=== PATIENT | female | born 1995 | race Caucasian/White ===

== ENCOUNTER 2017-05-04 10:05 | Emergency (ER) | payer BC ==
[2017-05-04] MEDS ORDERED: Sodium Chloride 0.9% 10 ML Syringe FLUSH PRN (10:16)
[2017-05-04 10:23] VITALS: BP 148/86
--- NOTE | 2017-05-04 11:04 | CT ---
Head CT Technique: Multiple axial sections through the brain were obtained. Intravenous contrast was not utilized. Comparison: No previous intracranial imaging. Findings: Ventricles along with basal cisterns and sulci over the convexities are within normal limits for the patient's age. No abnormal parenchymal densities are seen. No evidence of intracranial hemorrhage. No midline shift or mass effect is seen. Bone window settings were reviewed which shows no acute calvarial abnormality. Visualized sinuses are clear. Impression: 1. Nothing acute is appreciated on noncontrast head CT study. Diagnostic code #1
--- NOTE | 2017-05-04 11:22 | EDM.PDOC ---
ED HPI GENERAL MEDICAL PROBLEM - General Chief Complaint: Neuro Symptoms/Deficits Stated Complaint: HANDS TINGLY AND MOUTH NUMB Time Seen by Provider: 05/04/17 10:16 Source of Information: Reports: Patient History Limitations: Reports: No Limitations - History of Present Illness INITIAL COMMENTS - FREE TEXT/NARRATIVE: The patient presents with tingling to her lips and both hands and also felt like she was floating in her body. This started at 0930 this morning at work in her break room. She is a paraprofessional at school. She has no fever, chills, cough, chest pain, shortness of breath, abdominal pain, nausea, vomiting , numbness or weakness. She has never had this happen before. She has no medical problems. She has no recent stress. A stroke alert was called and the last time know well was 0930. Onset: Sudden Duration: Minutes: Severity: Moderate Improves with: Reports: None Worsens with: Reports: None Associated Symptoms: Reports: No Other Symptoms - Related Data Allergies Allergy/AdvReac Type Severity Reaction Status Date / Time No Known Allergies Allergy Verified 05/04/17 10:25 Home Meds: Home Meds Potassium Chloride 10 meq PO DAILY #30 cap.er 05/04/17 [Rx] Past Medical History - Past Health History Medical/Surgical History: Denies Medical/Surgical History Social & Family History - Family History Family Medical History: Noncontributory - Tobacco Use Smoking Status *Q: Never Smoker Second Hand Smoke Exposure: No - Caffeine Use Caffeine Use: Reports: Coffee - Recreational Drug Use Recreational Drug Use: No - Living Situation & Occupation Living situation: Reports: Single Occupation: Employed ED ROS GENERAL - Review of Systems Review Of Systems: See Below Constitutional: Reports: No Symptoms HEENT: Reports: No Symptoms Respiratory: Reports: No Symptoms Cardiovascular: Reports: No Symptoms Endocrine: Reports: No Symptoms GI/Abdominal: Reports: No Symptoms : Reports: No Symptoms Musculoskeletal: Reports: No Symptoms Neurological: Reports: Tingling (Face and hands) ED EXAM, NEURO - Physical Exam Exam: See Below Exam Limited By: No Limitations General Appearance: Alert, No Apparent Distress Ears: Normal External Exam Nose: Normal Inspection Head Exam: Atraumatic, Normocephalic Neck: Normal Inspection Respiratory/Chest: No Respiratory Distress, Lungs Clear, Normal Breath Sounds Cardiovascular: Regular Rate, Rhythm, No Edema, No Murmur GI/Abdominal: Soft, Non-Tender, No Organomegaly, No Mass Neurological: Alert, No Motor/Sensory Deficits, Oriented x 3, Other (Tingling to her lips and fingers but no numbness) EKG INTERPRETATION EKG Date: 05/04/17 Time: 10:25 Rhythm: Other (Sinus tachycardia) Rate (Beats/Min): 112 [place]: Normal P-Wave: Present QRS: Normal ST-T: Normal QT: Normal Course - Vital Signs Last Recorded V/S: Last Vital Signs Temp 97.9 F 05/04/17 10:16 Pulse 96 05/04/17 10:16 Resp 18 05/04/17 10:16 BP 148/86 H 05/04/17 10:16 Pulse Ox 100 05/04/17 10:16 - Orders/Labs/Meds Orders: Active Orders 24 hr Category Date Time Status Cardiac Monitoring [RC] . DIRECTED Care 05/04/17 10:17 Active EKG Documentation Completion [RC] STAT Care 05/04/17 10:17 Active Peripheral IV Care [RC] . DIRECTED Care 05/04/17 10:17 Active Sodium Chloride 0.9% [Saline Flush] Med 05/04/17 10:16 Active 10 ml FLUSH ASDIRECTED PRN Peripheral IV Insertion Adult [OM.PC] Stat Oth 05/04/17 10:16 Ordered Medication Orders Sodium Chloride (Saline Flush) 10 ml FLUSH ASDIRECTED PRN PRN Reason: Keep Vein Open Last Admin: 05/04/17 10:33 Dose: 10 ml Labs: Laboratory Tests 05/04/17 05/04/17 05/04/17 Range/Units 10:14 10:20 10:20 WBC 9.55 (3.98-10.04) K/mm3 RBC 4.80 (3.98-5.22) M/mm3 Hgb 13.9 (11.2-15.7) gm/L Hct 42.0 (34.1-44.9) % MCV 87.5 (79.4-94.8) fl MCH 29.0 (25.6-32.2) pg MCHC 33.1 (32.2-35.5) g/dl RDW Std Deviation 45.1 (36.4-46.3) fL Plt Count 276 (182-369) K/mm3 MPV 10.9 (9.4-12.3) fl Neut % (Auto) 65.1 (34.0-71.1) % Lymph % (Auto) 26.7 (19.3-51.7) % [place] % (Auto) 7.4 (4.7-12.5) % Eos % (Auto) 0.5 L (0.7-5.8) Baso % (Auto) 0.2 (0.1-1.2) % Neut # (Auto) 6.21 H (1.56-6.13) K/mm3 Lymph # (Auto) 2.55 (1.18-3.74) K/mm3 [place] # (Auto) 0.71 H (0.24-0.36) K/mm3 Eos # (Auto) 0.05 (0.04-0.36) K/mm3 Baso # (Auto) 0.02 (0.01-0.08) K/mm3 Sodium 140 (136-145) mEq/L Potassium 3.2 L (3.5-5.1) mEq/L Chloride 102 (98-107) mEq/L Carbon Dioxide 22 (21-32) mEq/L Anion Gap 19.2 H (5-15) BUN 9 (7-18) mg/dL Creatinine 0.8 (0.55-1.02) mg/dL Est Cr Clr Drug Dosing 97.57 mL/min Estimated GFR (MDRD) > 60 (>60) mL/min BUN/Creatinine Ratio 11.3 L (14-18) Glucose 120 H (74-106) mg/dL POC Glucose 96 (70-105) mg/dL Calcium 9.3 (8.5-10.1) mg/dL Magnesium 1.8 (1.8-2.4) mg/dl Total Bilirubin 0.4 (0.2-1.0) mg/dL AST 18 (15-37) U/L ALT 26 (14-59) U/L Alkaline Phosphatase 59 (46-116) U/L Troponin I < 0.017 (0.00-0.056) ng/mL Total Protein 7.9 (6.4-8.2) g/dl Albumin 4.0 (3.4-5.0) g/dl Globulin 3.9 gm/dL Albumin/Globulin Ratio 1.0 (1-2) Urine HCG, Qual (NEGATIVE) 02/26/18 Range/Units 10:20 WBC (3.98-10.04) K/mm3 RBC (3.98-5.22) M/mm3 Hgb (11.2-15.7) gm/L Hct (34.1-44.9) % MCV (79.4-94.8) fl MCH (25.6-32.2) pg MCHC (32.2-35.5) g/dl RDW Std Deviation (36.4-46.3) fL Plt Count (182-369) K/mm3 MPV (9.4-12.3) fl Neut % (Auto) (34.0-71.1) % Lymph % (Auto) (19.3-51.7) % [place] % (Auto) (4.7-12.5) % Eos % (Auto) (0.7-5.8) Baso % (Auto) (0.1-1.2) % Neut # (Auto) (1.56-6.13) K/mm3 Lymph # (Auto) (1.18-3.74) K/mm3 [place] # (Auto) (0.24-0.36) K/mm3 Eos # (Auto) (0.04-0.36) K/mm3 Baso # (Auto) (0.01-0.08) K/mm3 Sodium (136-145) mEq/L Potassium (3.5-5.1) mEq/L Chloride (98-107) mEq/L Carbon Dioxide (21-32) mEq/L Anion Gap (5-15) BUN (7-18) mg/dL Creatinine (0.55-1.02) mg/dL Est Cr Clr Drug Dosing mL/min Estimated GFR (MDRD) (>60) mL/min BUN/Creatinine Ratio (14-18) Glucose (74-106) mg/dL POC Glucose (70-105) mg/dL Calcium (8.5-10.1) mg/dL Magnesium (1.8-2.4) mg/dl Total Bilirubin (0.2-1.0) mg/dL AST (15-37) U/L ALT (14-59) U/L Alkaline Phosphatase (46-116) U/L Troponin I (0.00-0.056) ng/mL Total Protein (6.4-8.2) g/dl Albumin (3.4-5.0) g/dl Globulin gm/dL Albumin/Globulin Ratio (1-2) Urine HCG, Qual Negative (NEGATIVE) Meds: Medications Generic Name Dose Route Start Last Admin Trade Name Boni PRN Reason Stop Dose Admin Sodium Chloride 10 ml 05/04/17 10:16 05/04/17 10:33 Saline Flush FLUSH 10 ml ASDIRECTED PRN Administration Keep Vein Open - Re-Assessments/Exams Free Text/Narrative Re-Assessment/Exam: 05/04/17 11:24 A stroke alert was called. Her last time known well was 0930 this morning. Her EKG shows a sinus tachycardia with no acute changes. Her head CT looks good. Her CBC looks good. Her K was a little low at 3.2. Her glucose was elevated at 120. Her troponin was negative. Her HCG is negative. She feels better. This sounds like an anxiety attack but she says she is not stressed and she has no recent stress. I will treat her low potassium and have her follow up with Rosemarie Marcano. 05/04/17 11:29 Departure - Departure Time of Disposition: 11:30 Disposition: Home, Self-Care 01 Condition: Good Clinical Impression: Hypokalemia, Tingling sensation - Discharge Information Prescriptions: Potassium Chloride 10 meq PO DAILY #30 cap.er Referrals: PCP,None [Primary Care Provider] - Thelma Harmon MD [Physician] - 1 Week Forms: ED Department Discharge, ED Return to Work/School Form Additional Instructions: Take the potassium daily. Have your potassium checked in 1 to 2 weeks[address] Follow up with Dr Harmon. Please return if you are worse. - My Orders Last 24 Hours: My Active Orders 05/04/17 10:16 Sodium Chloride 0.9% [Saline Flush] 10 ml FLUSH ASDIRECTED PRN Peripheral IV Insertion Adult [OM.PC] Stat 05/04/17 10:17 Cardiac Monitoring [RC] . DIRECTED EKG Documentation Completion [RC] STAT Peripheral IV Care [RC] . DIRECTED - Assessment/Plan Last 24 Hours: My Active Orders 05/04/17 10:16 Sodium Chloride 0.9% [Saline Flush] 10 ml FLUSH ASDIRECTED PRN Peripheral IV Insertion Adult [OM.PC] Stat 05/04/17 10:17 Cardiac Monitoring [RC] . DIRECTED EKG Documentation Completion [RC] STAT Peripheral IV Care [RC] . DIRECTED
== END 2017-05-04 11:50 | disposition home or self-care (01) ==
LOC: JD.ED 10:05
DX: E87.6 Hypokalemia (principal); R20.2 Paresthesia of skin; Z79.899 Other long term (current) drug therapy
CPT/HCPCS: 36415; 70450; 80053; 81025; 82962; 83735; 84484; 85025; 93005; 99285; J7050; 93010; 99284-25

== ENCOUNTER 2018-06-15 09:36 | Emergency (ER) | payer BC ==
[2018-06-15 09:49] VITALS: BP 133/92
--- NOTE | 2018-06-15 11:14 | EDM.PDOC ---
ED HPI GENERAL MEDICAL PROBLEM - General Chief Complaint: Syncope Stated Complaint: DIZZY/WEAKNESS Time Seen by Provider: 06/15/18 10:54 Source of Information: Reports: Patient, RN Notes Reviewed History Limitations: Reports: No Limitations - History of Present Illness INITIAL COMMENTS - FREE TEXT/NARRATIVE: Patient is a 23-year-old female who presents to the ED for the evaluation of feeling faint as to where she was going to pass out. 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 when she had some feelings of becoming faint. She notes that she felt as if she was going to pass out so she got low to the ground. She noted some tingling sensations to her upper arms at this time. She also states that it sounds as if noises sound faraway with these spells. She has had similar episodes of this last year, she states that she was seen in the ER and was found to have low potassium at that time. She does take her potassium supplements. She notes that these are happening more frequently, and now she states that she can have maybe 2 or 3 per week. She states that normally these spells last for 15 minutes, however the spell today lasted around 45 minutes. She states she did eat a good breakfast this morning. She does not notice any specific timing of these spells. She is not aware of any diabetic diagnosis for herself, but notes a history of diabetes in her family with her grandmother and her dad being affected. She denies any nausea/vomiting, palpitations, chest pain. She notes some mild shortness of breath with these symptoms as well. She also notes that she does not have any increased stress in her life, but has had some issues with anxiety in the past. - Related Data Allergies Allergy/AdvReac Type Severity Reaction Status Date / Time No Known Allergies Allergy Verified 06/15/18 09:42 Home Meds: Home Meds Potassium Chloride 10 meq PO ASDIRECTED 06/15/18 [History] Past Medical History - Past Health History Medical/Surgical History: Denies Medical/Surgical History Cardiovascular History: Reports: Other (See Below) Other Cardiovascular History: near syncopal episodes over past year. Dx'd with low K+ last year. Gastrointestinal History: Reports: Gastritis Neurological History: Reports: Other (See Below) Other Neuro History: near syncopal episodes over past year. - Infectious Disease History Infectious Disease History: Reports: Chicken Pox Social & Family History - Family History Family Medical History: Noncontributory - Tobacco Use Smoking Status *Q: Never Smoker Second Hand Smoke Exposure: No - Caffeine Use Caffeine Use: Reports: Coffee, Soda - Recreational Drug Use Recreational Drug Use: No - Living Situation & Occupation Living situation: Reports: Single Occupation: Employed ED ROS GENERAL - Review of Systems Review Of Systems: See Below Constitutional: Denies: Fever, Chills, Weakness HEENT: Denies: Ear Pain, Vertigo Respiratory: Reports: Shortness of Breath Cardiovascular: Reports: Lightheadedness. Denies: Chest Pain, Blood Pressure Problem, Palpitations, Syncope Endocrine: Reports: No Symptoms GI/Abdominal: Reports: No Symptoms : Reports: No Symptoms Musculoskeletal: Reports: No Symptoms Skin: Reports: No Symptoms Neurological: Reports: Dizziness. Denies: Confusion, Syncope Psychiatric: Reports: Anxiety Hematologic/Lymphatic: Reports: No Symptoms Immunologic: Reports: No Symptoms ED EXAM, DIZZINESS - Physical Exam Exam: See Below Exam Limited By: No Limitations General Appearance: Alert, WD/WN, No Apparent Distress Eye Exam: Bilateral Eye: EOMI Ears: Normal External Exam, Normal Canal, Hearing Grossly Normal, Normal TMs Nose: Normal Inspection, Normal Mucosa Throat/Mouth: Normal Inspection, Normal Lips, Normal Teeth, Normal Gums, Normal Oropharynx, Normal Voice, No Airway Compromise Head Exam: Atraumatic Neck: Normal Inspection, Supple, Non-Tender, Full Range of Motion Respiratory/Chest: No Respiratory Distress, Lungs Clear, Normal Breath Sounds, No Accessory Muscle Use, Chest Non-Tender Cardiovascular: Normal Peripheral Pulses, Regular Rate, Rhythm, No Murmur GI/Abdominal: Normal Bowel Sounds, Soft, Non-Tender, No Distention, No Mass Neurological: Alert, Normal Mood/Affect, Normal Dorsiflexion, Normal Plantar Flexion, Normal Gait, Normal Reflexes, No Motor/Sensory Deficits, Oriented x 3 Extremities: Normal Inspection, Normal Capillary Refill Psychiatric: Normal Affect, Normal Mood Skin Exam: Warm, Dry, Intact, Normal Color, No Rash Course - Vital Signs Last Recorded V/S: Last Vital Signs Temp 98.6 F 06/15/18 09:40 Pulse 103 H 06/15/18 09:40 Resp 18 06/15/18 09:40 BP 133/92 H 06/15/18 09:40 Pulse Ox 100 06/15/18 09:40 Orthostatic Blood Pressure [ 150/93 Standing] Orthostatic Blood Pressure [ 142/99 Sitting] Orthostatic Blood Pressure [ 133/92 Supine] - Orders/Labs/Meds Orders: Active Orders 24 hr Category Date Time Status Holter Monitor 48 Hours [RC] .PRN Care 06/15/18 12:47 Ordered UA W/MICROSCOPIC [URIN] Stat Lab 06/15/18 12:05 Ordered Labs: Laboratory Tests 06/15/18 06/15/18 Range/Units 11:23 11:23 WBC 8.03 (3.98-10.04) K/mm3 RBC 4.54 (3.98-5.22) M/mm3 Hgb 13.5 (11.2-15.7) gm/L Hct 39.7 (34.1-44.9) % MCV 87.4 (79.4-94.8) fl MCH 29.7 (25.6-32.2) pg MCHC 34.0 (32.2-35.5) g/dl RDW Std Deviation 44.2 (36.4-46.3) fL Plt Count 257 (182-369) K/mm3 MPV 10.9 (9.4-12.3) fl Neutrophils % (Manual) 75 H (40-60) % Band Neutrophils % 0 (0-10) % Lymphocytes % (Manual) 18 L (20-40) % Atypical Lymphs % 0 % Monocytes % (Manual) 6 (2-10) % Eosinophils % (Manual) 1 (0.7-5.8) % Basophils % (Manual) 0 L (0.1-1.2) Platelet Estimate Adequate RBC Morph Comment Normal Sodium 141 (136-145) mEq/L Potassium 4.4 (3.5-5.1) mEq/L Chloride 105 (98-107) mEq/L Carbon Dioxide 25 (21-32) mEq/L Anion Gap 15.4 H (5-15) BUN 12 (7-18) mg/dL Creatinine 0.7 (0.55-1.02) mg/dL Est Cr Clr Drug Dosing 106.09 mL/min Estimated GFR (MDRD) > 60 (>60) mL/min BUN/Creatinine Ratio 17.1 (14-18) Glucose 98 (74-106) mg/dL Calcium 9.9 (8.5-10.1) mg/dL Total Bilirubin 0.4 (0.2-1.0) mg/dL AST 12 L (15-37) U/L ALT 17 (14-59) U/L Alkaline Phosphatase 45 L (46-116) U/L Total Protein 7.4 (6.4-8.2) g/dl Albumin 3.8 (3.4-5.0) g/dl Globulin 3.6 gm/dL Albumin/Globulin Ratio 1.1 (1-2) - Re-Assessments/Exams Free Text/Narrative Re-Assessment/Exam: 06/15/18 12:00 Patient presents to the ED for the evaluation of dizziness and feeling faint. Her exam was benign at this point in time. Her symptoms are somewhat concerning for possible dehydration. She does not note any specific timing of these symptoms, she was worried about his history diabetes in her family I did mention to the patient that she should check her blood sugars at times of feeling faint. The patient is amenable to this plan. I did order a CBC, CMP, UA for further lab evaluation. Her labs did return at this time and her CBC and CMP are within normal limits. There is no overt reason as to why she is feeling dizzy/faint at this time. We will however give the patient the opportunity to take home a Holter monitor for 48 hours to see if we cannot catch a episode to rule out further etiology. 06/15/18 12:49 CBC and CMP are unremarkable for any abnormalities at this time, UA is still pending but I do not expect there to be any issues with this either as her other labs came back fine. I have ordered 48 hour Holter monitor and will tell the patient to follow up with Safia Eden in our family practice clinic. Departure - Departure Time of Disposition: 12:50 Disposition: Home, Self-Care 01 Condition: Fair Clinical Impression: Dizziness - Discharge Information *PRESCRIPTION DRUG MONITORING PROGRAM REVIEWED*: No *COPY OF PRESCRIPTION DRUG MONITORING REPORT IN PATIENT ARMANDO: No Instructions: Near-Syncope, [id number] Referrals: PCP,Unknown [Primary Care Provider] - Forms: ED Department Discharge Additional Instructions: You have been evaluated in the ED today for your dizziness/feeling faint spells. Your labs were unremarkable for any concerning etiology of why you should be feeling dizzy or faint. A 48 hour Holter monitor has been ordered please wear this for the next 48 hours and follow up with Safia Eden, in our family practice clinic please call [phone] for an appointment with her about 1 week after you finish up with the Holter monitor. She can then determine if you need further workup for your dizziness or fainting issues. Please also maybe check your blood sugars at times of feeling faint to provide us more insight as to what might be going on. Please return to the ED if her symptoms change or worsen. - My Orders Last 24 Hours: My Active Orders 06/15/18 12:05 UA W/MICROSCOPIC [URIN] Stat 06/15/18 12:47 Holter Monitor 48 Hours [RC] .PRN - Assessment/Plan Last 24 Hours: My Active Orders 06/15/18 12:05 UA W/MICROSCOPIC [URIN] Stat 06/15/18 12:47 Holter Monitor 48 Hours [RC] .PRN
== END 2018-06-15 13:15 | disposition home or self-care (01) ==
LOC: JD.ED 09:36
DX: R42 Dizziness and giddiness (principal)
CPT/HCPCS: 36415; 80053; 81001; 85007; 85027; 93225; 93226; 99283; 99284-25

== ENCOUNTER 2019-06-01 05:26 | Inpatient (IN) | payer BC ==
[~2019-06-01 05:26] MED LIST: Citric Acid/Sodium Citrate Solution 30 ML Cup PO ONE; Metoclopramide 10 MG/2 ML SDV IVPUSH ONE; Sodium Chloride 0.9% 10 ML Syringe FLUSH PRN
[2019-06-01] MEDS ORDERED: Oxytocin/Lactated Ringers 10 UNIT/1,000 ML BAG IV SCH (05:30)
[2019-06-01] MEDS ORDERED: Lactated Ringers 1,000 ML ONE ×2 (05:52→08:12)
[2019-06-01] MEDS: Lactated Ringers 1,000 ML IV SCH ×3 (06:19→08:55)
[2019-06-01] MEDS ORDERED: ceFAZolin 2 GM in Premix Bag 1 BAG IV ONE (07:00)
--- NOTE | 2019-06-01 07:13 | PCM.PREANE ---
Preanesthetic Assessment - Anesthesia/Transfusion/Family Hx Anesthesia History: No Prior Anesthesia Transfusion History: No Prior Transfusion(s) - Review of Systems General: No Symptoms Pulmonary: No Symptoms Cardiovascular: No Symptoms Gastrointestinal: No Symptoms Neurological: No Symptoms Other: Reports: None - Physical Assessment NPO Status Date: 06/01/19 NPO Status Time: 06:00 Vital Signs: Last Vital Signs Temp 98.1 F 06/01/19 05:43 Pulse 102 H 06/01/19 05:43 Resp 16 06/01/19 05:43 BP 117/75 06/01/19 05:43 Pulse Ox 94 L 06/01/19 05:43 Height: 1.65 m Weight: 85.774 kg ASA Class: 2 Mental Status: Alert & Oriented x3 Airway Class: Mallampati = 2 Dentition: Reports: Normal Dentition Thyro-Mental Finger Breadths: 3 Mouth Opening Finger Breadths: 3 ROM/Head Extension: Full Lungs: Clear to Auscultation, Normal Respiratory Effort Cardiovascular: Regular Rate, Regular Rhythm - Lab Values: Laboratory Last Values WBC 11.67 K/mm3 (3.98-10.04) H 06/01/19 06:24 RBC 4.15 M/mm3 (3.98-5.22) 06/01/19 06:24 Hgb 11.9 gm/dl (11.2-15.7) D 06/01/19 06:24 Hct 36.2 % (34.1-44.9) 06/01/19 06:24 MCV 87.2 fl (79.4-94.8) 06/01/19 06:24 MCH 28.7 pg (25.6-32.2) 06/01/19 06:24 MCHC 32.9 g/dl (32.2-35.5) 06/01/19 06:24 RDW Std Deviation 46.7 fL (36.4-46.3) H 06/01/19 06:24 Plt Count 244 K/mm3 (182-369) 06/01/19 06:24 MPV 11.8 fl (9.4-12.3) 06/01/19 06:24 Neut % (Auto) 78.3 % (34.0-71.1) H 06/01/19 06:24 Lymph % (Auto) 16.0 % (19.3-51.7) L 06/01/19 06:24 [place] % (Auto) 5.1 % (4.7-12.5) 06/01/19 06:24 Eos % (Auto) 0.3 (0.7-5.8) L 06/01/19 06:24 Baso % (Auto) 0.1 % (0.1-1.2) 06/01/19 06:24 Neut # (Auto) 9.14 K/mm3 (1.56-6.13) H 06/01/19 06:24 Lymph # (Auto) 1.87 K/mm3 (1.18-3.74) 06/01/19 06:24 [place] # (Auto) 0.59 K/mm3 (0.24-0.36) H 06/01/19 06:24 Eos # (Auto) 0.04 K/mm3 (0.04-0.36) 06/01/19 06:24 Baso # (Auto) 0.01 K/mm3 (0.01-0.08) 06/01/19 06:24 - Allergies Allergies/Adverse Reactions: Allergies Allergy/AdvReac Type Severity Reaction Status Date / Time No Known Allergies Allergy Verified 05/30/19 14:42 - Blood Blood Available: Yes Product(s) Available: PRBC - Acknowledgements Anesthesia Type Planned: Spinal Pt an Appropriate Candidate for the Planned Anesthesia: Yes Alternatives and Risks of Anesthesia Discussed w Pt/Guardian: Yes Pt/Guardian Understands and Agrees with Anesthesia Plan: Yes PreAnesthesia Questionnaire - Past Health History Medical/Surgical History: Denies Medical/Surgical History Cardiovascular History: Reports: Other (See Below) Other Cardiovascular History: near syncopal episodes over past year. Dx'd with low K+ last year. Gastrointestinal History: Reports: GERD SKIVER HEEL TAP History: Reports: Neurological History: Reports: Other (See Below) Other Neuro History: near syncopal episodes over past year. Psychiatric History: Reports: Anxiety, Depression Hematologic History: Reports: Anemia - Infectious Disease History Infectious Disease History: Reports: Chicken Pox - SUBSTANCE USE Smoking Status *Q: Former Smoker Tobacco Use Within Last Twelve Months: Cigarettes Recreational Drug Use History: No - HOME MEDS Home Medications: Home Meds [id number]/Iron Fumarate/FA/DSS [ 19 Tablet] 1 each PO DAILY 04/05/19 [ History] Doxylamine Succinate [Unisom] 25 mg PO DAILY 05/30/19 [History] Ferrous Sulfate [Iron] 325 mg PO DAILY 05/30/19 [History] Ondansetron [Zofran Odt] 8 mg PO Q8H PRN 05/30/19 [History] Vitamin B6-pyridOXINE [Vitamin B6] 25 mg PO DAILY 05/30/19 [History] - CURRENT (IN HOUSE) MEDS Current Meds: Current Medications Cefazolin Sodium/Dextrose 2 gm (/ Premix) 50 mls @ 100 mls/hr IV ONETIME ONE Stop: 06/01/19 07:29 Lactated Ringer's (Ringers, Lactated) 1,000 mls @ 125 mls/hr IV ASDIRECTED JAMAAL Last Admin: 06/01/19 06:19 Dose: 125 mls/hr Oxytocin/Lactated Ringer's (Pitocin In Lr 10 Units/1,000 Ml) 10 unit in 1,000 mls @ 100 mls/hr IV ASDIRECTED JAMAAL; Protocol Sodium Chloride (Saline Flush) 10 ml FLUSH ASDIRECTED PRN PRN Reason: Keep Vein Open Discontinued Medications Citric Acid/Sodium Citrate (Bicitra Solution) 30 ml PO ONETIME ONE Stop: 06/01/19 05:20 Last Admin: 06/01/19 06:43 Dose: 30 ml Lactated Ringer's (Ringers, Lactated) Confirm Administered Dose 1,000 mls @ as directed .ROUTE .STK-MED ONE Stop: 06/01/19 05:53 Last Admin: 06/01/19 06:59 Dose: Not Given Metoclopramide HCl (Reglan) 10 mg IVPUSH ONETIME ONE Stop: 06/01/19 05:20 Last Admin: 06/01/19 06:43 Dose: 10 mg
[2019-06-01] MEDS ORDERED: Oxytocin 10 Units/1 ML SDV ONE (07:20)
[2019-06-01] MEDS ORDERED: fentaNYL 100 MCG/2 ML SDV ONE (07:20)
[2019-06-01] MEDS ORDERED: Morphine PF 1 MG/ML Amp ONE (07:21)
[2019-06-01] MEDS ORDERED: ceFAZolin 1 GM Vial ONE (07:24)
[2019-06-01] MEDS ORDERED: diphenhydrAMINE 50 MG/ML SDV IVPUSH PRN ×2 (07:31→09:57)
[2019-06-01] MEDS ORDERED: Ondansetron 4 MG/2 ML SDV IVPUSH PRN (07:31)
[2019-06-01] MEDS ORDERED: fentaNYL 100 MCG/2 ML SDV IVPUSH PRN (07:31)
[2019-06-01] MEDS ORDERED: Ketorolac 30 MG/ML SDV ONE (08:31)
[2019-06-01] MEDS ORDERED: Meperidine 50 MG/ML Vial IVPUSH PRN (08:41)
--- NOTE | 2019-06-01 08:49 | PCM.OPNOTE ---
- General Post-Op/Procedure Note Date of Surgery/Procedure: 06/01/19 Operative Procedure(s): Primary low transverse Findings: Baby girl in a breech presentation. APGARS of 9 & 9. Weight of 7 lbs 14 oz. Normal appearance of the uterus, fallopian tubes, and ovaries Pre Op Diagnosis: 39 3/7 wks. Breech presentation Post-Op Diagnosis: Same Anesthesia Technique: Spinal Primary Surgeon: Tana Talamantes Secondary Surgeon: Reanna Montes Anesthesia Provider: Zi Najera Reason Lead Sustainability Specialist Was Necessary: Speed/safety of procedure Pathology: Cord blood collected. Placenta discarded Fluid Replacement, Intraop: 1,600 Output, Urine Amount: 120 EBL in mLs: 700 Complications: None Condition: Good Free Text/Narrative:: The risks, benefits, indications, potential complications, and alternatives were explained to the patient and informed consent obtained. After induction of anesthesia, the patient was placed in a supine position and then draped and prepped in the usual sterile manner. A Pfannenstiel incision was made and carried down through the subcutaneous tissue to the fascia. Fascial incision was made and extended transversely. The fascia was from the underlying rectus tissue superiorly and inferiorly. The peritoneum was identified and entered. Peritoneal incision was extended longitudinally. The utero-vesical peritoneal reflection was incised transversely and the bladder flap was bluntly freed from the lower uterine segment. A low transverse uterine incision was made sharply with a scalpel and extended bluntly in a cephalocaudad direction. A baby girl was delivered from a breech presentation with APGARS as above. After the umbilical cord was clamped and cut cord blood was obtained for evaluation. The placenta was removed intact and appeared normal. The uterus was exteriorized and cleared of clots. The uterine outline, tubes and ovaries appeared normal. The uterine incision was closed with running locked sutures of 0 Vicryl. Hemostasis was obtained with a second imbricating layer of 0 vicryl. The uterus was then placed back into the abdomen. The infracolic gutters were cleared of blood clots. The fascia was then reapproximated with running sutures of 0 Vicryl. The subcutaneous tissue was irrigated with sterile warm normal saline, hemostasis obtained with cautery. This layer was also closed with a running 0 vicryl. The skin was reapproximated with running Subcuticular 4-0 monocryl sutures. Instrument, sponge, and needle counts were correct prior the abdominal closure and at the conclusion of the case.
--- NOTE | 2019-06-01 09:37 | PCM.POSTAN ---
POST ANESTHESIA ASSESSMENT - MENTAL STATUS Mental Status: Alert, Oriented - VITAL SIGNS Vital Signs: Post operative VSs in PACU 0835: BP:123/62 HR:91 SpO2:100 RA RR 16 T:97.6F Last Vital Signs Temp 97.9 F 06/01/19 09:15 Pulse 71 06/01/19 09:20 Resp 15 06/01/19 09:20 BP 119/75 06/01/19 09:20 Pulse Ox 98 06/01/19 09:20 - RESPIRATORY Respiratory Status: Respiratory Rate WNL, Airway Patent, O2 Saturation Stable - CARDIOVASCULAR CV Status: Pulse Rate WNL, Blood Pressure Stable - GASTROINTESTINAL GI Status: No Symptoms - PAIN Pain Score: 0 (post SAB) - POST OP HYDRATION Hydration Status: Adequate & Stable
[2019-06-01] MEDS ORDERED: Ondansetron 4 MG/2 ML SDV IV PRN (09:57)
[2019-06-01] MEDS ORDERED: Dextrose 5%-Lactated Ringers 1,000 ML IV SCH (09:57)
[2019-06-01] MEDS ORDERED: Docusate Sodium 100 MG Cap PO PRN (09:57)
[2019-06-01] MEDS ORDERED: Sennosides 8.6 MG Tab PO PRN (09:57)
[2019-06-01] MEDS ORDERED: Acetaminophen/oxyCODONE 325-5 MG Tab PO PRN (09:57)
[2019-06-01] MEDS: Acetaminophen/oxyCODONE 325-5 MG Tab PO PRN (12:46)
[2019-06-01] MEDS: Ketorolac 30 MG/ML SDV IVPUSH SCH ×2 (15:11→21:55)
[2019-06-02] MEDS: Ketorolac 30 MG/ML SDV IVPUSH SCH (03:58)
--- NOTE | 2019-06-02 07:16 | PCM.PNPP ---
- General Info Date of Service: 06/02/19 Functional Status: Reports: Pain Controlled, Tolerating Diet, Ambulating, Urinating - Review of Systems General: Reports: No Symptoms Pulmonary: Reports: No Symptoms Cardiovascular: Reports: No Symptoms Gastrointestinal: Reports: Abdominal Pain (managed with medications ) Genitourinary: Reports: No Symptoms Musculoskeletal: Reports: No Symptoms Neurological: Reports: No Symptoms - Patient Data Vital Signs - Most Recent: Last Vital Signs Temp 37.0 C 06/02/19 00:12 Pulse 93 06/02/19 00:12 Resp 16 06/02/19 06:00 BP 114/77 06/02/19 00:12 Pulse Ox 99 06/02/19 06:00 Weight - Most Recent: 85.774 kg I&O - Last 24 Hours: Intake & Output 06/01/19 06/02/19 06/02/19 22:59 06:59 14:59 Output Total 750 400 Balance -750 -400 Lab Results - Last 24 Hours: Laboratory Results - last 24 hr 06/01/19 06/01/19 06/02/19 Range/Units 06:24 06:24 05:40 WBC 12.43 H (3.98-10.04) K/mm3 RBC 3.68 L (3.98-5.22) M/mm3 Hgb 10.5 L (11.2-15.7) gm/dl Hct 32.5 L (34.1-44.9) % MCV 88.3 (79.4-94.8) fl MCH 28.5 (25.6-32.2) pg MCHC 32.3 (32.2-35.5) g/dl RDW Std Deviation 48.3 H (36.4-46.3) fL Plt Count 196 (182-369) K/mm3 MPV 11.9 (9.4-12.3) fl RPR Non-reactive (NONREACTIVE) Blood Type A NEGATIVE Gel Antibody Screen Negative Med Orders - Current: Current Medications Diphenhydramine HCl (Benadryl) 25 mg IVPUSH Q6H PRN PRN Reason: Itching or Nausea Docusate Sodium (Colace) 100 mg PO Q12H PRN PRN Reason: Constipation Ibuprofen (Motrin) 600 mg PO Q6H PRN PRN Reason: mild pain or fever Ondansetron HCl (Zofran) 4 mg IV Q8H PRN PRN Reason: Nausea/Vomiting Oxycodone/Acetaminophen (Percocet 325-5 Mg) 1 tab PO Q4H PRN PRN Reason: Pain (moderate 4-6) Oxycodone/Acetaminophen (Percocet 325-5 Mg) 2 tab PO Q4H PRN PRN Reason: Pain (severe 7-10) Last Admin: 06/01/19 12:46 Dose: 2 tab Senna (Senna) 8.6 mg PO BEDTIME PRN PRN Reason: Constipation Discontinued Medications Cefazolin Sodium (Ancef) Confirm Administered Dose 2 gm .ROUTE .STK-MED ONE Stop: 06/01/19 07:25 Citric Acid/Sodium Citrate (Bicitra Solution) 30 ml PO ONETIME ONE Stop: 06/01/19 05:20 Last Admin: 06/01/19 06:43 Dose: 30 ml Diphenhydramine HCl (Benadryl) 25 mg IVPUSH Q6H PRN PRN Reason: Pruritis Fentanyl (Sublimaze) Confirm Administered Dose 100 mcg .ROUTE .STK-MED ONE Stop: 06/01/19 07:21 Fentanyl (Sublimaze) 50 mcg IVPUSH Q5M PRN PRN Reason: Pain Lactated Ringer's (Ringers, Lactated) Confirm Administered Dose 1,000 mls @ as directed .ROUTE .STK-MED ONE Stop: 06/01/19 05:53 Last Admin: 06/01/19 06:59 Dose: Not Given Cefazolin Sodium/Dextrose 2 gm (/ Premix) 50 mls @ 100 mls/hr IV ONETIME ONE Stop: 06/01/19 07:29 Lactated Ringer's (Ringers, Lactated) 1,000 mls @ 125 mls/hr IV ASDIRECTED [facility] Last Admin: 06/01/19 08:55 Dose: 125 mls/hr Oxytocin/Lactated Ringer's (Pitocin In Lr 10 Units/1,000 Ml) 10 unit in 1,000 mls @ 100 mls/hr IV ASDIRECTED [facility]; Protocol Lactated Ringer's (Ringers, Lactated) Confirm Administered Dose 1,000 mls @ as directed .ROUTE .STK-MED ONE Stop: 06/01/19 08:13 Dextrose/Lactated Ringer's (Dextrose 5%-Lactated Ringers) 1,000 mls @ 125 mls/ hr IV ASDIRECTED [facility] Stop: 06/01/19 17:56 Last Admin: 06/01/19 15:14 Dose: 125 mls/hr Ketorolac Tromethamine (Toradol) Confirm Administered Dose 30 mg .ROUTE .STK- MED ONE Stop: 06/01/19 08:32 Ketorolac Tromethamine (Toradol) 30 mg IVPUSH Q6H [facility] Stop: 06/02/19 02:31 Last Admin: 06/02/19 03:58 Dose: 30 mg Meperidine HCl (Meperidine) 25 mg IVPUSH Q10M PRN PRN Reason: Other Stop: 06/01/19 08:56 Last Admin: 06/01/19 08:51 Dose: 25 mg Metoclopramide HCl (Reglan) 10 mg IVPUSH ONETIME ONE Stop: 06/01/19 05:20 Last Admin: 06/01/19 06:43 Dose: 10 mg Morphine Sulfate (Duramorph Pf) Confirm Administered Dose 1 mg .ROUTE .STK-MED ONE Stop: 06/01/19 07:22 Ondansetron HCl (Zofran) 4 mg IVPUSH ONETIME PRN PRN Reason: Nausea/Vomiting Last Admin: 06/01/19 08:50 Dose: 4 mg Oxytocin (Pitocin) Confirm Administered Dose 20 unit .ROUTE .STK-MED ONE Stop: 06/01/19 07:21 Sodium Chloride (Saline Flush) 10 ml FLUSH ASDIRECTED PRN PRN Reason: Keep Vein Open - Infant Interaction Infant Disposition, : in Room with Family Interaction: Holding Infant Infant Feeding: Attempted ; Nursed Fair/Poor Support Person: - Recovery Exam Fundal Tone: Firm Fundal Level: At Umbilicus Fundal Placement: Midline Lochia Amount: Moderate Lochia Color: Rubra/Red Perineum Description: Intact, Minimal Bruising/Swelling Episiotomy/Laceration: None Bladder Status: Voiding Urinary Elimination: Voided - Exam General: Alert, Oriented, Cooperative Lungs: Clear to Auscultation, Normal Respiratory Effort Cardiovascular: Regular Rate, Regular Rhythm GI/Abdominal Exam: Soft, Tender (appropriate post op ) Extremities: Normal Inspection Skin: Warm, Dry, Intact Wound/Incisions: Healing Well, No Drainage - Problem List & Annotations (1) 39 weeks gestation of SNOMED Code(s): 25585930 Code(s): Z3A.39 - 39 WEEKS GESTATION OF Status: Acute Current Visit: Yes (2) Rh negative state in antepartum period SNOMED Code(s): 182019593 Code(s): O26.899 - OTH RELATED CONDITIONS, UNSPECIFIED TRIMESTER; Z67.91 - UNSPECIFIED BLOOD TYPE, RH NEGATIVE Status: Acute Current Visit: Yes - Problem List Review Problem List Initiated/Reviewed/Updated: Yes - My Orders Last 24 Hours: My Active Orders 06/01/19 09:57 Activity as Tolerated [RC] .Routine Communication Order [RC] PER UNIT ROUTINE Intake and Output [RC] Q4H May Shower [RC] PER UNIT ROUTINE Notify Provider Intake and Out [RC] ASDIRECTED RT Incentive Spirometry [RC] Q2HWA Vital Signs [RC] Q4HR Acetaminophen/oxyCODONE [Percocet 325-5 MG] 1 tab PO Q4H PRN Acetaminophen/oxyCODONE [Percocet 325-5 MG] 2 tab PO Q4H PRN Docusate Sodium [Colace] 100 mg PO Q12H PRN Ondansetron [Zofran] 4 mg IV Q8H PRN Sennosides [Senna] 8.6 mg PO BEDTIME PRN diphenhydrAMINE [Benadryl] 25 mg IVPUSH Q6H PRN Assess Lochia [WOMSER] Per Unit Routine Assess Uterine Involution [WOMSER] Per Unit Routine Breast Pump [WOMSER] Per Unit Routine Heat Therapy [OM.PC] Per Unit Routine Peripheral IV Discontinue [OM.PC] Routine Sequential Compression Device [OM.PC] Per Unit Routine 06/01/19 Breakfast Regular Diet [DIET] 06/02/19 08:30 Ibuprofen [Motrin] 600 mg PO Q6H PRN 06/02/19 09:01 Urinary Catheter Removal [RC] Per Unit Routine - Assessment Assessment:: POD#1 - Plan Plan:: * Routine cares * CBC appropriate this AM * Breast feeding * Discharge home in 1-2 days
--- NOTE | 2019-06-02 07:53 | PCM48HPAN ---
Post Anesthesia Note - EVALUATION WITHIN 48HRS OF ANESTHETIC Vital Signs in Normal Range: Yes Patient Participated in Evaluation: Yes Respiratory Function Stable: Yes Airway Patent: Yes Cardiovascular Function Stable: Yes Hydration Status Stable: Yes Pain Control Satisfactory: Yes Nausea and Vomiting Control Satisfactory: Yes Mental Status Recovered: Yes Vital Signs: Last Vital Signs Temp 98.6 F 06/02/19 00:12 Pulse 93 06/02/19 00:12 Resp 15 06/02/19 07:00 BP 114/77 06/02/19 00:12 Pulse Ox 98 06/02/19 07:00
[2019-06-02] MEDS: Acetaminophen/oxyCODONE 325-5 MG Tab PO PRN ×3 (09:20→17:31)
[2019-06-02] MEDS: Ibuprofen 600 MG Tab PO PRN (21:39)
[2019-06-03] MEDS: Ibuprofen 600 MG Tab PO PRN (03:39)
[2019-06-03] MEDS: Acetaminophen/oxyCODONE 325-5 MG Tab PO PRN (03:40)
--- NOTE | 2019-06-03 07:20 | PCM.PNPP ---
- General Info Date of Service: 06/03/19 Functional Status: Reports: Pain Controlled, Tolerating Diet, Ambulating, Urinating - Review of Systems General: Reports: No Symptoms Pulmonary: Reports: No Symptoms Cardiovascular: Reports: No Symptoms Gastrointestinal: Reports: Abdominal Pain (managed with medications ) Genitourinary: Reports: No Symptoms Musculoskeletal: Reports: No Symptoms - Patient Data Vital Signs - Most Recent: Last Vital Signs Temp 36.6 C 06/03/19 03:31 Pulse 69 06/03/19 03:36 Resp 15 06/03/19 03:31 BP 121/89 06/03/19 03:36 Pulse Ox 96 06/03/19 03:36 Weight - Most Recent: 85.774 kg I&O - Last 24 Hours: Intake & Output 06/02/19 06/03/19 06/03/19 22:59 06:59 14:59 Output Total 300 Balance -300 Med Orders - Current: Current Medications Diphenhydramine HCl (Benadryl) 25 mg IVPUSH Q6H PRN PRN Reason: Itching or Nausea Docusate Sodium (Colace) 100 mg PO Q12H PRN PRN Reason: Constipation Last Admin: 06/02/19 21:39 Dose: 100 mg Ibuprofen (Motrin) 600 mg PO Q6H PRN PRN Reason: mild pain or fever Last Admin: 06/03/19 03:39 Dose: 600 mg Ondansetron HCl (Zofran) 4 mg IV Q8H PRN PRN Reason: Nausea/Vomiting Oxycodone/Acetaminophen (Percocet 325-5 Mg) 1 tab PO Q4H PRN PRN Reason: Pain (moderate 4-6) Oxycodone/Acetaminophen (Percocet 325-5 Mg) 2 tab PO Q4H PRN PRN Reason: Pain (severe 7-10) Last Admin: 06/03/19 03:40 Dose: 2 tab Senna (Senna) 8.6 mg PO BEDTIME PRN PRN Reason: Constipation Discontinued Medications Cefazolin Sodium (Ancef) Confirm Administered Dose 2 gm .ROUTE .STK-MED ONE Stop: 06/01/19 07:25 Citric Acid/Sodium Citrate (Bicitra Solution) 30 ml PO ONETIME ONE Stop: 06/01/19 05:20 Last Admin: 06/01/19 06:43 Dose: 30 ml Diphenhydramine HCl (Benadryl) 25 mg IVPUSH Q6H PRN PRN Reason: Pruritis Fentanyl (Sublimaze) Confirm Administered Dose 100 mcg .ROUTE .STK-MED ONE Stop: 06/01/19 07:21 Fentanyl (Sublimaze) 50 mcg IVPUSH Q5M PRN PRN Reason: Pain Lactated Ringer's (Ringers, Lactated) Confirm Administered Dose 1,000 mls @ as directed .ROUTE .STK-MED ONE Stop: 06/01/19 05:53 Last Admin: 06/01/19 06:59 Dose: Not Given Cefazolin Sodium/Dextrose 2 gm (/ Premix) 50 mls @ 100 mls/hr IV ONETIME ONE Stop: 06/01/19 07:29 Lactated Ringer's (Ringers, Lactated) 1,000 mls @ 125 mls/hr IV ASDIRECTED [facility] Last Admin: 06/01/19 08:55 Dose: 125 mls/hr Oxytocin/Lactated Ringer's (Pitocin In Lr 10 Units/1,000 Ml) 10 unit in 1,000 mls @ 100 mls/hr IV ASDIRECTED [facility]; Protocol Lactated Ringer's (Ringers, Lactated) Confirm Administered Dose 1,000 mls @ as directed .ROUTE .STK-MED ONE Stop: 06/01/19 08:13 Dextrose/Lactated Ringer's (Dextrose 5%-Lactated Ringers) 1,000 mls @ 125 mls/ hr IV ASDIRECTED [facility] Stop: 06/01/19 17:56 Last Admin: 06/01/19 15:14 Dose: 125 mls/hr Ketorolac Tromethamine (Toradol) Confirm Administered Dose 30 mg .ROUTE .STK- MED ONE Stop: 06/01/19 08:32 Ketorolac Tromethamine (Toradol) 30 mg IVPUSH Q6H [facility] Stop: 06/02/19 02:31 Last Admin: 06/02/19 03:58 Dose: 30 mg Meperidine HCl (Meperidine) 25 mg IVPUSH Q10M PRN PRN Reason: Other Stop: 06/01/19 08:56 Last Admin: 06/01/19 08:51 Dose: 25 mg Metoclopramide HCl (Reglan) 10 mg IVPUSH ONETIME ONE Stop: 06/01/19 05:20 Last Admin: 06/01/19 06:43 Dose: 10 mg Morphine Sulfate (Duramorph Pf) Confirm Administered Dose 1 mg .ROUTE .STK-MED ONE Stop: 06/01/19 07:22 Ondansetron HCl (Zofran) 4 mg IVPUSH ONETIME PRN PRN Reason: Nausea/Vomiting Last Admin: 06/01/19 08:50 Dose: 4 mg Oxytocin (Pitocin) Confirm Administered Dose 20 unit .ROUTE .STK-MED ONE Stop: 06/01/19 07:21 Sodium Chloride (Saline Flush) 10 ml FLUSH ASDIRECTED PRN PRN Reason: Keep Vein Open - Infant Interaction Disposition, : [place] in Room with Family Infant Interaction: Holding Infant Feeding: Attempted ; Nursed Fair/Poor Support Person: - Recovery Exam Fundal Tone: Firm Fundal Level: 2 Fingerbreadths Below Umbilicus Fundal Placement: Midline Lochia Amount: Small Lochia Color: Rubra/Red Perineum Description: Intact, Minimal Bruising/Swelling Episiotomy/Laceration: Approximated Bladder Status: Voiding Urinary Elimination: Voided - Exam General: Alert, Oriented, Cooperative Lungs: Clear to Auscultation, Normal Respiratory Effort Cardiovascular: Regular Rate, Regular Rhythm GI/Abdominal Exam: Soft, No Distention (appropriate post op ), Tender Extremities: Normal Inspection Skin: Warm, Dry, Intact Wound/Incisions: Healing Well, No Drainage - Problem List & Annotations (1) 39 weeks gestation of SNOMED Code(s): 35367360 Code(s): Z3A.39 - 39 WEEKS GESTATION OF Status: Acute Current Visit: Yes (2) Rh negative state in antepartum period SNOMED Code(s): 145627620 Code(s): O26.899 - OTH RELATED CONDITIONS, UNSPECIFIED TRIMESTER; Z67.91 - UNSPECIFIED BLOOD TYPE, RH NEGATIVE Status: Acute Current Visit: Yes (3) Status post primary low transverse section SNOMED Code(s): 687221737, 83398329, 453537011, 181196866, 029161351 Code(s): Z98.891 - HISTORY OF UTERINE SCAR FROM PREVIOUS SURGERY Status: Acute Current Visit: Yes - Problem List Review Problem List Initiated/Reviewed/Updated: Yes - My Orders Last 24 Hours: My Active Orders 06/02/19 08:30 Ibuprofen [Motrin] 600 mg PO Q6H PRN - Assessment Assessment:: POD#2 - Plan Plan:: * Routine cares * Baby Rh negative, no need for Rhogam * Breast and bottle feeding * Discharge home today
--- NOTE | 2019-06-03 07:20 | PCM.DCSUM1 ---
Discharge Summary - Discharge Data Discharge Date: 06/03/19 Discharge Disposition: Home, Self-Care 01 Condition: Good - Referral to Home Health Primary Care Physician: Tana Talamantes MD - Discharge Diagnosis/Problem(s) (1) 39 weeks gestation of SNOMED Code(s): 84329349 ICD Code: Z3A.39 - 39 WEEKS GESTATION OF Status: Acute Current Visit: Yes (2) Rh negative state in antepartum period SNOMED Code(s): 713683925 ICD Code: O26.899 - OTH RELATED CONDITIONS, UNSPECIFIED TRIMESTER; Z67.91 - UNSPECIFIED BLOOD TYPE, RH NEGATIVE Status: Acute Current Visit: Yes (3) Status post primary low transverse section SNOMED Code(s): 253006610, 01326969, 643029967, 490332400, 521546962 ICD Code: Z98.891 - HISTORY OF UTERINE SCAR FROM PREVIOUS SURGERY Status: Acute Current Visit: Yes - Patient Summary/Data Operative Procedure(s) Performed: Primary low transverse Complications: None Consults: None Recommended Follow-up Testing/Procedures: Follow up in 3 weeks Hospital Course: 24 y/o presented at 39 3/7 wks for planned PLTCS due to breech presentation of her baby. Surgery was uncomplicated. See delivery note. she did well and was discharged home on PPD#2. - Patient Instructions Diet: Regular Diet as Tolerated Activity: No Lifting Over 10 Pounds Activity, Other: Pelvic rest for 6 weeks Driving: May Drive Today Showering/Bathing: May Shower, No Tub Bathing/Swimming Wound/Incision Care: Keep Operative Site/Wound Site Clean and Dry Notify Provider of: Fever, Increased Pain, Swelling and Redness, Drainage, Nausea and/or Vomiting - Discharge Plan *PRESCRIPTION DRUG MONITORING PROGRAM REVIEWED*: No *COPY OF PRESCRIPTION DRUG MONITORING REPORT IN PATIENT ARMANDO: No Prescriptions/Med Rec: Acetaminophen/oxyCODONE [Percocet 325-5 MG] 1 - 2 tab PO Q4H PRN #25 tablet PRN Reason: Pain (Moderate 4-6) Home Medications: Home Meds [id number]/Iron Fumarate/FA/DSS [ 19 Tablet] 1 each PO DAILY 04/05/19 [ History] Acetaminophen/oxyCODONE [Percocet 325-5 MG] 1 - 2 tab PO Q4H PRN #25 tablet [Rx] Docusate Sodium [Colace] 100 mg PO Q12H PRN cap 06/02/19 [Rx] Ibuprofen [Motrin] 600 mg PO Q6H PRN tablet 06/02/19 [Rx] Patient Handouts: Care After Delivery, Breast Engorgement Referrals: Tana Talamantes MD [Primary Care Provider] - (3 weeks for check) - Discharge Summary/Plan Comment DC Time >30 min.: No - Patient Data Vitals - Most Recent: Last Vital Signs Temp 36.6 C 06/03/19 03:31 Pulse 69 06/03/19 03:36 Resp 15 06/03/19 03:31 BP 121/89 06/03/19 03:36 Pulse Ox 96 06/03/19 03:36 Weight - Most Recent: 85.774 kg I&O - Last 24 hours: Intake & Output 06/02/19 06/03/19 06/03/19 22:59 06:59 14:59 Output Total 300 Balance -300 Med Orders - Current: Current Medications Diphenhydramine HCl (Benadryl) 25 mg IVPUSH Q6H PRN PRN Reason: Itching or Nausea Docusate Sodium (Colace) 100 mg PO Q12H PRN PRN Reason: Constipation Last Admin: 06/02/19 21:39 Dose: 100 mg Ibuprofen (Motrin) 600 mg PO Q6H PRN PRN Reason: mild pain or fever Last Admin: 06/03/19 03:39 Dose: 600 mg Ondansetron HCl (Zofran) 4 mg IV Q8H PRN PRN Reason: Nausea/Vomiting Oxycodone/Acetaminophen (Percocet 325-5 Mg) 1 tab PO Q4H PRN PRN Reason: Pain (moderate 4-6) Oxycodone/Acetaminophen (Percocet 325-5 Mg) 2 tab PO Q4H PRN PRN Reason: Pain (severe 7-10) Last Admin: 06/03/19 03:40 Dose: 2 tab Senna (Senna) 8.6 mg PO BEDTIME PRN PRN Reason: Constipation Discontinued Medications Cefazolin Sodium (Ancef) Confirm Administered Dose 2 gm .ROUTE .STK-MED ONE Stop: 06/01/19 07:25 Citric Acid/Sodium Citrate (Bicitra Solution) 30 ml PO ONETIME ONE Stop: 06/01/19 05:20 Last Admin: 06/01/19 06:43 Dose: 30 ml Diphenhydramine HCl (Benadryl) 25 mg IVPUSH Q6H PRN PRN Reason: Pruritis Fentanyl (Sublimaze) Confirm Administered Dose 100 mcg .ROUTE .STK-MED ONE Stop: 06/01/19 07:21 Fentanyl (Sublimaze) 50 mcg IVPUSH Q5M PRN PRN Reason: Pain Lactated Ringer's (Ringers, Lactated) Confirm Administered Dose 1,000 mls @ as directed .ROUTE .STK-MED ONE Stop: 06/01/19 05:53 Last Admin: 06/01/19 06:59 Dose: Not Given Cefazolin Sodium/Dextrose 2 gm (/ Premix) 50 mls @ 100 mls/hr IV ONETIME ONE Stop: 06/01/19 07:29 Lactated Ringer's (Ringers, Lactated) 1,000 mls @ 125 mls/hr IV ASDIRECTED [facility] Last Admin: 06/01/19 08:55 Dose: 125 mls/hr Oxytocin/Lactated Ringer's (Pitocin In Lr 10 Units/1,000 Ml) 10 unit in 1,000 mls @ 100 mls/hr IV ASDIRECTED [facility]; Protocol Lactated Ringer's (Ringers, Lactated) Confirm Administered Dose 1,000 mls @ as directed .ROUTE .STK-MED ONE Stop: 06/01/19 08:13 Dextrose/Lactated Ringer's (Dextrose 5%-Lactated Ringers) 1,000 mls @ 125 mls/ hr IV ASDIRECTED [facility] Stop: 06/01/19 17:56 Last Admin: 06/01/19 15:14 Dose: 125 mls/hr Ketorolac Tromethamine (Toradol) Confirm Administered Dose 30 mg .ROUTE .STK- MED ONE Stop: 06/01/19 08:32 Ketorolac Tromethamine (Toradol) 30 mg IVPUSH Q6H [facility] Stop: 06/02/19 02:31 Last Admin: 06/02/19 03:58 Dose: 30 mg Meperidine HCl (Meperidine) 25 mg IVPUSH Q10M PRN PRN Reason: Other Stop: 06/01/19 08:56 Last Admin: 06/01/19 08:51 Dose: 25 mg Metoclopramide HCl (Reglan) 10 mg IVPUSH ONETIME ONE Stop: 06/01/19 05:20 Last Admin: 06/01/19 06:43 Dose: 10 mg Morphine Sulfate (Duramorph Pf) Confirm Administered Dose 1 mg .ROUTE .STK-MED ONE Stop: 06/01/19 07:22 Ondansetron HCl (Zofran) 4 mg IVPUSH ONETIME PRN PRN Reason: Nausea/Vomiting Last Admin: 06/01/19 08:50 Dose: 4 mg Oxytocin (Pitocin) Confirm Administered Dose 20 unit .ROUTE .STK-MED ONE Stop: 06/01/19 07:21 Sodium Chloride (Saline Flush) 10 ml FLUSH ASDIRECTED PRN PRN Reason: Keep Vein Open
[2019-06-03 10:36] VITALS: BP 143/77; PULSE 62
== END 2019-06-03 10:35 | disposition home or self-care (01) | DRG 540 ==
LOC: JD.OB 05:26
PROVIDERS: ADMIT Obstetrics & Gynecology; ATTEND Obstetrics & Gynecology
PROC: 10D00Z1 Extraction of Products of Conception, Low, Open Approach (ICD-10-PCS; principal; 2019-06-01)
DX: O32.1XX0 Maternal care for breech presentation, not applicable or unspecified (principal); Z3A.39 39 weeks gestation of pregnancy; Z37.0 Single live birth; O26.893 Other specified pregnancy related conditions, third trimester; Z67.91 Unspecified blood type, Rh negative
CPT/HCPCS: 01961; 36415; 59025; 85025; 85027; 86592; 86850; 86900; 86901; 94762; A9270-GY; J0690; J1885; J2175; J2274; J2405; J2590; J2765; J3010; J7120; J7121

== ENCOUNTER 2019-08-17 04:46 | Emergency (ER) | payer BC ==
[2019-08-17 05:02] VITALS: BP 0/0; PULSE 125
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
== END 2019-08-17 06:59 | disposition home or self-care (01) ==
LOC: JD.ED 04:46
DX: F32.9 Major depressive disorder, single episode, unspecified (principal); Z87.891 Personal history of nicotine dependence
CPT/HCPCS: 36415; 80053; 80306; 81001; 81025; 84443; 85007; 85027; 85379; 86140; 93005; 93010; 99282; 99284-25